=== PATIENT | male | born 1960 | race Two or more races ===

== ENCOUNTER 2018-05-25 16:32 | Emergency (ER) | payer BC, OTHER ==
[~2018-05-25] VITALS: Ht 170.2 cm; Wt 77.6 kg
--- NOTE | 2018-05-25 16:35 | NUR ---
at bedside in room 1b for MSE.
--- NOTE | 2018-05-25 16:56 | NUR ---
Patient discharged to home in stable conditon with family. Written and verbal after care instructions given. Patient and family verbalized understanding of instructions. Stressed follow up with pmd or return to ER for worsening s/s.
== END 2018-05-25 17:01 | disposition home or self-care (01) ==
LOC: ER 16:33
DX: G51.0 Bell's palsy (principal)
CPT/HCPCS: A4663

== ENCOUNTER 2025-01-08 20:16 | Emergency (ER) | payer BC, OTHER ==
[~2025-01-08] VITALS: Ht 172.7 cm; Wt 77.1 kg
[2025-01-08] MEDS ORDERED: HYDROCODONE/APAP 10-325 MG TABLET ONE (20:48)
[2025-01-08] MEDS: HYDROCODONE/APAP 10-325 MG TABLET PO ONE (20:50)
[2025-01-08 21:07] LABS: PLATELET COUNT (AUTO) 236 K/uL (152-348); RED BLOOD CELL COUNT(AUTO) 4.33 MIL/uL (4.06-5.63); RED CELL DISTRIBUTION WIDTH 12.8 % (12.1-16.2); WHITE BLOOD COUNT (AUTO) 12.4 K/uL (3.6-10.2)
[2025-01-08 21:13] LABS: CREATININE 0.9 mg/dL (0.6-1.3); SODIUM SERUM 139.0 mmol/L (136-145); UREA NITROGEN, BLOOD 19.0 mg/dL (7-18)
[2025-01-08 21:19] LABS: ASPARTATE AMINOTRANSFERASE 56.0 U/L (15-37); TOTAL PROTEIN, SERUM 7.2 g/dL (6.4-8.2)
[2025-01-08 22:04] VITALS: BP 134/89
[2025-01-08] MEDS ORDERED: GABA100C PO (22:43)
[2025-01-08 23:19] VITALS: BP 135/85; TEMP 98; O2SAT 98
== END 2025-01-08 23:21 | disposition home or self-care (01) ==
LOC: ER 20:16
DX: M79.661 Pain in right lower leg (principal); E78.5 Hyperlipidemia, unspecified; M25.551 Pain in right hip; R20.2 Paresthesia of skin; M54.10 Radiculopathy, site unspecified; Z79.899 Other long term (current) drug therapy
CPT/HCPCS: 36415; 72131; 85025; A4606; A4663